=== PATIENT | female | born 1980 | race American Indian/Alaskan Native ===

== ENCOUNTER 2016-11-09 14:06 | Emergency (ER) | payer SELFPAY ==
[2016-11-09 14:20] VITALS: BP 124/87; PULSE 82; RESP 18; TEMP 97.7; O2SAT 100
[2016-11-09] MEDS ORDERED: Naproxen 500 MG TAB PO ONE (14:28)
--- NOTE | 2016-11-09 14:44 | ED PDOC ---
HPI: CCC, URI, Sore Throat Time Seen by Provider: 11/09/16 14:21 Chief Complaint (Nursing): ENT Problem Chief Complaint (Provider): ENT problem History Per: Patient History/Exam Limitations: no limitations Onset/Duration Of Symptoms: Hrs (prior to arrival) Associated Symptoms: denies: Fever, Sore Throat, Cough, Nasal Congestion Additional Complaint(s): Imelda Hartley, 35 year old female presents to the ED on 11/09/16 with a sore throat localized to the left side beginning a few hours prior to arrival. The patient denies fever, shortness of breath, swelling of the throat, cough, congestion, or rash. She states that the pain radiates to her left ear and no medications have helped with her symptoms. Past Medical History Reviewed: Historical Data, Nursing Documentation, Vital Signs Vital Signs: Last Vital Signs Temp 97.7 F 11/09/16 14:17 Pulse 82 11/09/16 14:17 Resp 18 11/09/16 14:17 BP 124/87 11/09/16 14:17 Pulse Ox 100 11/10/16 00:03 - Medical History PMH: No Chronic Diseases - Family History Family History: States: No Known Family Hx - Home Medications Home Medications: Ambulatory Orders Medication Instructions Recorded Amoxicillin [Amoxil 500 mg Cap] 500 mg PO Q8 #30 cap 11/09/16 Naproxen [Naprosyn] 500 mg PO BID PRN #30 tab 11/09/16 - Allergies Allergies/Adverse Reactions: Allergies Allergy/AdvReac Type Severity Reaction Status Date / Time No Known Allergies Allergy Verified 11/09/16 14:17 Review of Systems Constitutional: Negative for: Fever ENT: Positive for: Ear Pain (pain radiates to left ear), Throat Pain (sore throat localized to the left side). Negative for: Nose Congestion, Throat Swelling Respiratory: Negative for: Cough, Shortness of Breath Skin: Negative for: Rash Physical Exam - Reviewed Nursing Documentation Reviewed: Yes Vital Signs Reviewed: Yes - Physical Exam Appears: Positive for: Non-toxic, No Acute Distress Head Exam: Positive for: ATRAUMATIC, NORMOCEPHALIC Skin: Positive for: Normal Color, Warm, Dry ENT: Positive for: TM Is/Are (nonerythematous/non bulging bilaterally), Pharyngeal Erythema (bilateral pharyngeal erythema w/o exudates or swelling ), Other (no voice change, no trismus, able to swallow saliva). Negative for: Tonsillar Exudate, Tonsillar Swelling Neck: Positive for: Normal Cardiovascular/Chest: Positive for: Regular Rate, Rhythm, Chest Non Tender Respiratory: Positive for: Normal Breath Sounds. Negative for: Respiratory Distress Gastrointestinal/Abdominal: Positive for: Normal Exam, Soft. Negative for: Tenderness, Organomegaly Neurologic/Psych: Positive for: Alert, Oriented (x3) - ECG O2 Sat by Pulse Oximetry: 100 (RA) Pulse Ox Interpretation: Normal - Progress ED Course And Treament: Patient informed of likelihood of [employer] and instructed to return to ED immediately if symptoms worsen. Medical Decision Making Medical Decision Makin:21 Initial Impression: ENT problem Initial Plan: * Throat Culture STAT * Naproxen 500 mg PO Once * Reevaluation Scribe Attestation: Documented by Anabel Mckeon, acting as a scribe for Bakari Cortés PA-C. Provider Scribe Attestation: All medical record entries made by the Scribe were at my direction and personally dictated by me. I have reviewed the chart and agree that the record accurately reflects my personal performance of the history, physical exam, medical decision making, and the department course for this patient. I have also personally directed, reviewed, and agree with the discharge instructions and disposition. Disposition - Clinical Impression Clinical Impression: Pharyngitis - Patient ED Disposition Is Patient to be Admitted: No - Disposition Disposition: Routine/Home Disposition Time: 14:30 Condition: STABLE Prescriptions: Amoxicillin [Amoxil 500 mg Cap] 500 mg PO Q8 #30 cap Naproxen [Naprosyn] 500 mg PO BID PRN #30 tab PRN Reason: Pain Instructions: Pharyngitis (ED)
== END 2016-11-09 14:41 | disposition home or self-care (01) ==
LOC: H.ER 14:06
DX: J02.9 Acute pharyngitis, unspecified (principal)